=== PATIENT | male | born 1945 | race Caucasian/White ===

== ENCOUNTER 2017-04-08 19:51 | Inpatient (IN) | payer OTHER, MEDICAID ==
[~2017-04-08] VITALS: Ht 182.9 cm; Wt 90.3 kg
[2017-04-08 20:31] LABS: CONDITION Y; DEFINITIVE SEE PRINTOUT
[2017-04-08 20:40] LABS: Hematocrit 37.9 % (41.0-53.0); Hemoglobin 12.4 g/dL (13.5-17.5); Mean Corpuscular Hemoglobin 27.4 pg (28.0-32.0); Mean Corpuscular Hgb Conc. 32.6 g/dL (32.0-36.0); Mean Platelet Volume 8.4 fL (7.4-10.4); Platelet Count (auto) 415 10^3/uL (140-450); Red Cell Distribution Width 17.5 % (11.6-16.0); White Blood Cell 18.3 10^3/uL (4.4-10.8)
[2017-04-08 20:42] LABS: Allen Test Yes; Blood 02Sat 91.8 % (96-100); Blood COHb 0.3 % (0.5-1.5); Blood MetHb 0.3 % (0.0-1.5); HCO3 9.6 mmol/L (22-26.0); HHb 8.2 % (0.0-5.0); MODE NASAL CANNULA; O2Hb 91.2 % (94.0-97.0); PO2 81.1 mmHg (80.0-100.0); PO2(T) 81.1 mmHg (80.0-100.0); Sample Type Arterial; pH 7.139 (7.350-7.450)
[2017-04-08 20:45] LABS: Metamyelocytes % 0; Myelocytes % 0; Promyelocytes % 0; Reactive Lymphocytes 0
[2017-04-08 20:49] LABS: Albumin 2.5 g/dL (3.4-5.0); Alkaline Phosphatase 104 U/L (45-117); Anion Gap 20 (5-15); Aspartate Aminotransferase 18 U/L (15-37); Bilirubin, Total 0.3 mg/dL (0.2-1.0); Carbon Dioxide 11 mmol/L (21-32); Chloride 104 mmol/L (98-107); GFR African American 3 mL/min; GFR Non-African American 3 mL/min; Glucose 98 mg/dL (74-106); Magnesium 3.2 mg/dL (1.6-2.6); Sodium 135 mmol/L (136-145); Total Protein 6.9 g/dL (6.4-8.2)
[2017-04-08] MEDS ORDERED: CALCIUM GLUC 4.65 MEQ/10ML IV ONE (21:04)
[2017-04-08 21:06] LABS: Potassium 9.1 mmol/L (3.5-5.1)
[2017-04-08] MEDS ORDERED: ALBUTEROL SULF 2.5 MG/0.5ML(0.5%) NEB SOLN NEB STA (21:06)
[2017-04-08 21:10] LABS: BUN/Creatinine Ratio 11.1; Blood Urea Nitrogen 206 mg/dL (7-18)
[2017-04-08] MEDS ORDERED: SODIUM POLYSTYRENE SULF 15GM/60ML SUSP PR ONE (21:15)
[2017-04-08] MEDS ORDERED: SODIUM BICARBONATE 8.4% INJ 50ML SYRINGE IV ONE (21:15)
[2017-04-08] MEDS ORDERED: DEXTROSE (50%) 50ML SYRG IV ONE (21:15)
[2017-04-08] MEDS ORDERED: InsuLIN REG 1unit/0.01ml Soln (100units/ml) IV ONE (21:15)
[2017-04-08] MEDS ORDERED: CALCIUM GLUC 4.65 MEQ/10ML 4.65 MEQ in SODIUM CHL 0.9% 50 ML IV ONE (21:15)
[2017-04-08] MEDS ORDERED: SODIUM BICARBONATE 8.4 % INJ 50ML VIAL IV ONE (21:30)
[2017-04-08] MEDS ORDERED: PIPERACILLIN-TAZOB 2.25GM 50 ML IV ONE (21:45)
[2017-04-08] MEDS ORDERED: VANCOMYCIN 1GM/250ML D5W 250 ML IV ONE (21:45)
[2017-04-08 21:54] LABS: Platelet Estimate Adequate
[2017-04-08 21:55] LABS: Burr Cells MODERATE; Ovalocytes FEW
[2017-04-08] MEDS ORDERED: MORPHINE SULF INJ 2 MG/ML SYRINGE 1ML IV PRN ×2 (22:00→22:15)
[2017-04-08] MEDS ORDERED: NITROGLYCERIN 0.4 MG SL TAB SL PRN (22:00)
[2017-04-08] MEDS ORDERED: SODIUM CHLORIDE 0.9% 1,000 ML IV ONE (22:00)
[2017-04-08 22:11] LABS: Urine RBC None Seen /hpf (0 - 3)
[2017-04-08] MEDS ORDERED: ALBUMIN 25% 100 ML IV ONE (22:15)
[2017-04-08] MEDS ORDERED: ONDANSETRON HCL 4 MG/2 ML VIAL IV PRN (22:15)
[2017-04-08 22:17] LABS: B-Type Natriuretic Peptide 148.18 pg/mL (0-100)
[2017-04-08 22:20] LABS: Temperature: 23.3 C (20.0-25.0)
[2017-04-08 22:36] LABS: Urine Bilirubin Negative (Negative); Urine Color Yellow (Yellow); Urine Glucose Normal (Normal); Urine Ketone Negative (Negative); Urine Nitrite Negative (Negative); Urine Urobilinogen Normal (Negative); Urine WBC Clumps PRESENT /hpf (None Seen)
[2017-04-08 22:40] LABS: Urine Blood 2+ /uL (Negative)
[2017-04-08] MEDS ORDERED: BUMETANIDE (0.25 MG/ML) INJ 10ML IV ONE (23:45)
[2017-04-08] MEDS ORDERED: BUMETANIDE (0.25MG/ML) 4 ML VIAL ONE (23:51)
[2017-04-08] MEDS ORDERED: BUMETANIDE INJECTION 10 ML ONE (23:53)
[2017-04-09] VITALS (67 sets, daily range): BP systolic 98–156; BP diastolic 36–117
[2017-04-09] MEDS ORDERED: CALCIUM GLUC 4.65 MEQ/10ML IV ONE (01:37)
[2017-04-09] MEDS ORDERED: SODIUM BICARBONATE 8.4% INJ 50ML SYRINGE ONE ×2 (01:38→03:20)
[2017-04-09] MEDS ORDERED: DEXTROSE 50% SYRINGE 50 ML IV ONE (01:38)
[2017-04-09] MEDS ORDERED: SODIUM POLYSTYRENE SULF 15GM/60ML SUSP ONE (01:38)
[2017-04-09] MEDS ORDERED: InsuLIN REG 1unit/0.01ml Soln (100units/ml) ONE (01:39)
[2017-04-09] MEDS ORDERED: CALCIUM GLUC 4.65 MEQ/10ML 4.65 MEQ in SODIUM CHL 0.9% 50 ML IV ONE (02:00)
[2017-04-09] MEDS ORDERED: DEXTROSE (25%) 10 ML SYRG IV ONE (02:00)
[2017-04-09] MEDS ORDERED: SODIUM POLYSTYRENE SULF 15GM/60ML SUSP PO ONE ×2 (02:00→06:30)
[2017-04-09] MEDS ORDERED: SODIUM BICARBONATE 8.4 % INJ 50ML VIAL IV ONE ×3 (02:00→06:30)
[2017-04-09] MEDS ORDERED: InsuLIN REG 1unit/0.01ml Soln (100units/ml) IV ONE (02:00)
[2017-04-09 02:31] LABS: Allen Test Yes; Base Excess -12.4 mmol/L (-2.0-2.0); Blood 02Sat 96.9 % (96-100); Blood COHb 0.3 % (0.5-1.5); Blood MetHb 0.2 % (0.0-1.5); HCO3 16.4 mmol/L (22-26.0); HHb 3.1 % (0.0-5.0); MODE MASK - SIMPLE; O2Hb 96.4 % (94.0-97.0); PCO2 50.1 mmHg (35.0-45.0); PCO2(T) 50.1 mmHg (35.0-45.0); PO2 133.1 mmHg (80.0-100.0); PO2(T) 133.1 mmHg (80.0-100.0); Sample Type Arterial; pH 7.133 (7.350-7.450)
[2017-04-09 04:05] LABS: Basophils # (auto) 0 uL; Basophils % (auto) 0.1 % (0.0-2.0); CONDITION Y; Eosinophils # (auto) 0.1 uL; Eosinophils % (auto) 0.3 % (0.0-7.0); Hematocrit 31.4 % (41.0-53.0); Hemoglobin 10.1 g/dL (13.5-17.5); Lymphocytes % (auto) 6.7 % (10.0-50.0); Mean Corpuscular Hemoglobin 27.1 pg (28.0-32.0); Mean Corpuscular Hgb Conc. 32.2 g/dL (32.0-36.0); Mean Corpuscular Volume 84.1 fL (80.0-100.0); Mean Platelet Volume 8.1 fL (7.4-10.4); Monocytes % (auto) 6.6 % (0.0-12.0); Neutrophils # (auto) 13.1 uL; Neutrophils % (auto) 86.3 % (37.0-80.0); Platelet Count (auto) 342 10^3/uL (140-450); Red Cell Distribution Width 17.1 % (11.6-16.0); White Blood Cell 15.2 10^3/uL (4.4-10.8)
[2017-04-09 04:32] LABS: Albumin 2.4 g/dL (3.4-5.0); Bilirubin, Total 0.3 mg/dL (0.2-1.0); Calcium 8.5 mg/dL (8.5-10.1); Total Protein 5.8 g/dL (6.4-8.2)
[2017-04-09 05:26] LABS: BUN/Creatinine Ratio 10.6
[2017-04-09 05:28] LABS: Potassium 6.3 mmol/L (3.5-5.1)
[2017-04-09 08:14] LABS: Allen Test Yes; Base Excess -7.7 mmol/L (-2.0-2.0); Blood 02Sat 95.5 % (96-100); Blood COHb 0.1 % (0.5-1.5); Blood MetHb 0.1 % (0.0-1.5); HCO3 19.7 mmol/L (22-26.0); HHb 4.5 % (0.0-5.0); MODE MASK - SIMPLE; O2Hb 95.3 % (94.0-97.0); PO2 101.4 mmHg (80.0-100.0); PO2(T) 101.4 mmHg (80.0-100.0); Sample Type Arterial; pH 7.231 (7.350-7.450)
[2017-04-09] MEDS: PIPERACILLIN-TAZOB 2.25GM 50 ML IV SCH ×2 (10:00→21:58)
[2017-04-09 10:37] LABS: INR 1.22 (0.9-1.15)
[2017-04-09 10:38] LABS: Prothrombin Time 13.3 sec (9.37-12.3)
[2017-04-09] MEDS ORDERED: GABA-339 PO (12:40)
[2017-04-09] MEDS ORDERED: CHOL20007 PO (12:42)
[2017-04-09] MEDS ORDERED: MELO-86 PO (12:42)
[2017-04-09] MEDS ORDERED: ALL300T PO (12:42)
[2017-04-09] MEDS ORDERED: AMLO5TAB2 PO (12:46)
[2017-04-09] MEDS ORDERED: ASPI81CH43 PO (12:46)
[2017-04-09] MEDS ORDERED: ATOR40TA52 PO (12:46)
[2017-04-09] MEDS ORDERED: ALB5IS NEB (12:46)
[2017-04-09] MEDS ORDERED: LOSA25TA9 PO (12:46)
[2017-04-09] MEDS ORDERED: CILO100T PO (12:46)
[2017-04-09] MEDS ORDERED: POM IN (12:47)
[2017-04-09] MEDS ORDERED: BUDE0.253 NEB (12:48)
[2017-04-09 13:19] LABS: Allen Test Yes; Base Excess -5.5 mmol/L (-2.0-2.0); Blood 02Sat 94.4 % (96-100); Blood COHb 0.3 % (0.5-1.5); Blood MetHb 0.1 % (0.0-1.5); HCO3 21.2 mmol/L (22-26.0); HHb 5.6 % (0.0-5.0); MODE MASK - BIPAP; PO2 90.8 mmHg (80.0-100.0); PO2(T) 90.8 mmHg (80.0-100.0); Sample Type Arterial; Spont Vt 787; pH 7.273 (7.350-7.450)
[2017-04-09] MEDS: LIDOCAINE 1% HCL (LOCAL ANESTH.) INJ 20ML MDV ONE ×2 (14:25→14:36)
[2017-04-09] MEDS: HEPARIN SODIUM (PORCINE) 5000 UNITS/ML 1ML VIAL ONE ×2 (14:25→14:35)
[2017-04-09] MEDS: ceFAZolin 1GM VL ONE ×2 (14:25→14:34)
[2017-04-09] MEDS: HEPARIN 1,000 UNITS/ml 1ML VIAL ONE ×2 (14:25→14:35)
[2017-04-09] MEDS ORDERED: fentaNYL CITRATE 100 MCG/2 ML VL ONE (15:46)
[2017-04-09] MEDS ORDERED: ceFAZolin 1GM/50ML D5W 50 ML IV ONE (15:46)
[2017-04-09] MEDS ORDERED: MIDAZOLAM HCL 1MG/1ML-2 ML VIAL ONE (15:46)
[2017-04-09] MEDS ORDERED: SODIUM CHLORIDE LOCK 20 ML ONE (15:47)
[2017-04-09 19:30] LABS: BUN/Creatinine Ratio 3.7; Calcium 7.6 mg/dL (8.5-10.1)
[2017-04-09 20:10] LABS: Potassium 2.5 mmol/L (3.5-5.1)
[2017-04-09] MEDS: MORPHINE SULFATE 4 MG/ML SYRG IV PRN (21:11)
[2017-04-09 21:55] LABS: Albumin 2.2 g/dL (3.4-5.0); BUN/Creatinine Ratio 10.3; Calcium 7.6 mg/dL (8.5-10.1)
[2017-04-09 22:03] LABS: Bilirubin, Total 0.3 mg/dL (0.2-1.0); Total Protein 5.8 g/dL (6.4-8.2)
[2017-04-09 22:12] LABS: Potassium 5.1 mmol/L (3.5-5.1)
[2017-04-09 22:46] LABS: Allen Test Modified; Base Excess 1.3 mmol/L (-2.0-2.0); Blood 02Sat 93.2 % (96-100); Blood COHb 0.2 % (0.5-1.5); Blood MetHb 0.1 % (0.0-1.5); HCO3 27.1 mmol/L (22-26.0); HHb 6.8 % (0.0-5.0); MODE MASK - BIPAP; O2Hb 92.9 % (94.0-97.0); PCO2 47.7 mmHg (35.0-45.0); PCO2(T) 47.7 mmHg (35.0-45.0); PIP 14; PO2 77.9 mmHg (80.0-100.0); PO2(T) 77.9 mmHg (80.0-100.0); Sample Type Arterial; Spont Vt 770; pH 7.372 (7.350-7.450)
[2017-04-09] MEDS ORDERED: LORazepam 2MG/ML-1ML VIAL ONE (22:53)
[2017-04-09] MEDS: LORazepam 2MG/ML-1ML VIAL IV PRN (23:00)
[2017-04-09] MEDS ORDERED: LORazepam 2MG/ML-1ML VIAL IV PRN (23:15)
[2017-04-10] VITALS (41 sets, daily range): BP systolic 96–144; BP diastolic 42–84
[2017-04-10 03:58] LABS: Basophils # (auto) 0 uL; CONDITION Y; DEFINITIVE SEE PRINTOUT; Eosinophils # (auto) 0.2 uL; Eosinophils % (auto) 0.9 % (0.0-7.0); Hematocrit 32.2 % (41.0-53.0); Hemoglobin 10.4 g/dL (13.5-17.5); Lymphocytes # (auto) 0.6 uL; Lymphocytes % (auto) 3.1 % (10.0-50.0); Mean Corpuscular Hemoglobin 26.9 pg (28.0-32.0); Mean Corpuscular Hgb Conc. 32.2 g/dL (32.0-36.0); Mean Corpuscular Volume 83.7 fL (80.0-100.0); Mean Platelet Volume 8.1 fL (7.4-10.4); Monocytes # (auto) 0.8 uL; Monocytes % (auto) 4.7 % (0.0-12.0); Neutrophils # (auto) 16.4 uL; Neutrophils % (auto) 91.3 % (37.0-80.0); Platelet Count (auto) 305 10^3/uL (140-450); Red Cell Distribution Width 18.1 % (11.6-16.0)
[2017-04-10 04:50] LABS: BUN/Creatinine Ratio 9.7; Calcium 7.8 mg/dL (8.5-10.1); Potassium 5.2 mmol/L (3.5-5.1)
[2017-04-10 05:05] LABS: Phosphorus 11.5 mg/dL (2.5-4.90)
[2017-04-10] MEDS: ALBUTEROL SULF 2.5 MG/0.5ML(0.5%) NEB SOLN NEB PRN ×2 (07:01→14:22)
[2017-04-10] MEDS: LORazepam 2MG/ML-1ML VIAL IV PRN ×3 (08:39→19:51)
[2017-04-10] MEDS: PIPERACILLIN-TAZOB 2.25GM 50 ML IV SCH ×2 (09:54→21:57)
[2017-04-10] MEDS: LINEZOLID 600MG/300ML 300 ML IV SCH ×2 (09:55→21:57)
[2017-04-10 12:55] LABS: Allen Test Yes; Base Excess -1.2 mmol/L (-2.0-2.0); Blood COHb 0.2 % (0.5-1.5); Blood MetHb 0.1 % (0.0-1.5); HCO3 25.8 mmol/L (22-26.0); MODE MASK - BIPAP; O2Hb 87.7 % (94.0-97.0); PCO2 54.3 mmHg (35.0-45.0); PCO2(T) 54.3 mmHg (35.0-45.0); PIP 14; PO2 65.3 mmHg (80.0-100.0); PO2(T) 65.3 mmHg (80.0-100.0); Sample Type Arterial; pH 7.295 (7.350-7.450)
[2017-04-10 18:24] LABS: Allen Test Yes; Base Excess -0.2 mmol/L (-2.0-2.0); Blood 02Sat 89.1 % (96-100); Blood COHb 0.1 % (0.5-1.5); Blood MetHb 0.1 % (0.0-1.5); HCO3 26.2 mmol/L (22-26.0); HHb 10.9 % (0.0-5.0); MODE MASK - BIPAP; O2Hb 88.9 % (94.0-97.0); PO2 65.8 mmHg (80.0-100.0); PO2(T) 65.8 mmHg (80.0-100.0); Sample Type Arterial; pH 7.329 (7.350-7.450)
[2017-04-11] VITALS (34 sets, daily range): BP systolic 105–150; BP diastolic 47–87
[2017-04-11 03:43] LABS: CONDITION Y; Hematocrit 33.4 % (41.0-53.0); Hemoglobin 10.8 g/dL (13.5-17.5); Mean Corpuscular Hemoglobin 27.2 pg (28.0-32.0); Mean Corpuscular Hgb Conc. 32.5 g/dL (32.0-36.0); Mean Corpuscular Volume 83.9 fL (80.0-100.0); Mean Platelet Volume 8.3 fL (7.4-10.4); Platelet Count (auto) 325 10^3/uL (140-450); Red Cell Distribution Width 17.9 % (11.6-16.0); SUSPECT SEE PRINTOUT; White Blood Cell 27.4 10^3/uL (4.4-10.8)
[2017-04-11 04:03] LABS: Calcium 7.8 mg/dL (8.5-10.1); Potassium 5.1 mmol/L (3.5-5.1)
[2017-04-11 04:10] LABS: Metamyelocytes % 0; Myelocytes % 0; Promyelocytes % 0; Reactive Lymphocytes 0
[2017-04-11 04:14] LABS: BUN/Creatinine Ratio 9.9
[2017-04-11 04:31] LABS: Hypersegmented Neutrophils Present
[2017-04-11 04:32] LABS: Anisocytosis Slight; Platelet Estimate Adequate
[2017-04-11] MEDS: LORazepam 2MG/ML-1ML VIAL IV PRN (06:36)
[2017-04-11] MEDS: MORPHINE SULFATE 4 MG/ML SYRG IV PRN ×2 (09:20→22:50)
[2017-04-11] MEDS ORDERED: LIDOCAINE 2%HCL (LOCAL ANESTH.) INJ 20ML MDV ONE (10:25)
[2017-04-11] MEDS ORDERED: IOHEXOL 300 MG/ML 100ML BOTTLE IJ ONE (10:26)
[2017-04-11] MEDS ORDERED: MORPHINE SULF INJ 2 MG/ML SYRINGE 1ML ONE (10:32)
[2017-04-11] MEDS: LINEZOLID 600MG/300ML 300 ML IV SCH ×2 (12:00→22:00)
[2017-04-11] MEDS: methylPREDNISolone SOD SUCC 125 MG/2 ML VL IV SCH ×2 (12:29→23:01)
[2017-04-11] MEDS: PIPERACILLIN-TAZOB 2.25GM 50 ML IV SCH ×2 (12:29→23:00)
[2017-04-11] MEDS ORDERED: MORPHINE SULF INJ 2 MG/ML SYRINGE 1ML IV ONE ×2 (12:31→12:45)
[2017-04-11 12:48] LABS: Base Excess -3.5 mmol/L (-2.0-2.0); Blood 02Sat 91.9 % (96-100); Blood MetHb 0.3 % (0.0-1.5); HCO3 27.3 mmol/L (22-26.0); HHb 8.1 % (0.0-5.0); MODE MASK - BIPAP; O2Hb 91.6 % (94.0-97.0); PCO2 84.8 mmHg (35.0-45.0); PCO2(T) 84.8 mmHg (35.0-45.0); Pressure Support 8; Sample Type Arterial; Spont Vt 655; pH 7.125 (7.350-7.450)
[2017-04-11] MEDS ORDERED: SODIUM BICARBONATE 8.4 % INJ 50ML VIAL IV ONE (13:00)
[2017-04-11] MEDS ORDERED: SODIUM BICARBONATE 8.4% INJ 50ML SYRINGE ONE (13:28)
[2017-04-11 15:30] LABS: Base Excess -0.9 mmol/L (-2.0-2.0); Blood 02Sat 96.4 % (96-100); Blood COHb 0.3 % (0.5-1.5); Blood MetHb 0.4 % (0.0-1.5); HCO3 27.8 mmol/L (22-26.0); HHb 3.6 % (0.0-5.0); MODE MASK - BIPAP; O2Hb 95.7 % (94.0-97.0); PCO2 68.7 mmHg (35.0-45.0); PCO2(T) 68.7 mmHg (35.0-45.0); PO2 108.3 mmHg (80.0-100.0); PO2(T) 108.3 mmHg (80.0-100.0); Sample Type Arterial; pH 7.225 (7.350-7.450)
[2017-04-11] MEDS: IPRATROPIUM BROM 0.5 MG/2.5ML INH SOL NEB PRN (18:44)
[2017-04-11] MEDS: ALBUTEROL SULF 2.5 MG/0.5ML(0.5%) NEB SOLN NEB PRN (18:44)
[2017-04-11 22:12] LABS: Base Excess -2.8 mmol/L (-2.0-2.0); Blood 02Sat 96.1 % (96-100); Blood COHb 0.3 % (0.5-1.5); Blood MetHb 0.3 % (0.0-1.5); HCO3 24.9 mmol/L (22-26.0); HHb 3.9 % (0.0-5.0); MODE MASK - BIPAP; O2Hb 95.5 % (94.0-97.0); PCO2 57.1 mmHg (35.0-45.0); PCO2(T) 57.1 mmHg (35.0-45.0); PIP 18; Sample Type Arterial; Spont Vt 1331; pH 7.257 (7.350-7.450)
[2017-04-12] VITALS (36 sets, daily range): BP systolic 98–156; BP diastolic 37–96
[2017-04-12 03:50] LABS: CONDITION Y; Hematocrit 31.1 % (41.0-53.0); Hemoglobin 10.1 g/dL (13.5-17.5); Mean Corpuscular Hemoglobin 27.6 pg (28.0-32.0); Mean Corpuscular Hgb Conc. 32.5 g/dL (32.0-36.0); Mean Corpuscular Volume 84.8 fL (80.0-100.0); Mean Platelet Volume 8.8 fL (7.4-10.4); Platelet Count (auto) 262 10^3/uL (140-450); Red Cell Distribution Width 18.2 % (11.6-16.0); SUSPECT SEE PRINTOUT; White Blood Cell 22.9 10^3/uL (4.4-10.8)
[2017-04-12 04:10] LABS: Metamyelocytes % 0; Myelocytes % 0; Promyelocytes % 0; Reactive Lymphocytes 0
[2017-04-12 04:19] LABS: Calcium 7.6 mg/dL (8.5-10.1); Magnesium 2.9 mg/dL (1.6-2.6); Potassium 5.1 mmol/L (3.5-5.1)
[2017-04-12 05:08] LABS: Hypersegmented Neutrophils Present; Platelet Estimate Adequate
[2017-04-12 05:09] LABS: Anisocytosis Slight
[2017-04-12 05:14] LABS: BUN/Creatinine Ratio 9.5
[2017-04-12] MEDS: IPRATROPIUM BROM 0.5 MG/2.5ML INH SOL NEB PRN (06:23)
[2017-04-12] MEDS: ALBUTEROL SULF 2.5 MG/0.5ML(0.5%) NEB SOLN NEB PRN (06:23)
[2017-04-12] MEDS: MORPHINE SULFATE 4 MG/ML SYRG IV PRN ×4 (06:41→22:56)
[2017-04-12 07:35] LABS: Allen Test Yes; Base Excess -0.1 mmol/L (-2.0-2.0); Blood 02Sat 94.9 % (96-100); Blood COHb 0.3 % (0.5-1.5); Blood MetHb 0.3 % (0.0-1.5); HCO3 27.8 mmol/L (22-26.0); HHb 5.1 % (0.0-5.0); MODE MASK - BIPAP; O2Hb 94.3 % (94.0-97.0); PCO2 62.7 mmHg (35.0-45.0); PCO2(T) 62.7 mmHg (35.0-45.0); PIP 20; Pressure Support 12; Sample Type Arterial; Spont Vt 629; pH 7.264 (7.350-7.450)
[2017-04-12] MEDS ORDERED: CATHFLO ACTIVASE (ALTEPLASE) 2 MG VIAL IV ONE (10:00)
[2017-04-12] MEDS: PIPERACILLIN-TAZOB 2.25GM 50 ML IV SCH ×2 (10:08→22:00)
[2017-04-12] MEDS: methylPREDNISolone SOD SUCC 125 MG/2 ML VL IV SCH ×2 (10:08→22:57)
[2017-04-12] MEDS ORDERED: LIDOCAINE 2%HCL (LOCAL ANESTH.) INJ 20ML MDV ONE (10:44)
[2017-04-12] MEDS: LINEZOLID 600MG/300ML 300 ML IV SCH ×2 (13:00→22:57)
[2017-04-12] MEDS ORDERED: IOHEXOL 300 MG/ML 100ML BOTTLE IJ ONE (14:38)
[2017-04-12 17:09] LABS: Allen Test Yes; Base Excess 3.1 mmol/L (-2.0-2.0); Blood 02Sat 95.9 % (96-100); Blood COHb 0.5 % (0.5-1.5); Blood MetHb 0.2 % (0.0-1.5); HCO3 30.5 mmol/L (22-26.0); HHb 4.1 % (0.0-5.0); MODE VENT - A/C; O2Hb 95.2 % (94.0-97.0); PCO2 61.5 mmHg (35.0-45.0); PCO2(T) 61.5 mmHg (35.0-45.0); PO2 96.9 mmHg (80.0-100.0); PO2(T) 96.9 mmHg (80.0-100.0); Pressure Support 14; Sample Type Arterial; Spont Vt 1127; pH 7.313 (7.350-7.450)
[2017-04-12] MEDS: LORazepam 2MG/ML-1ML VIAL IV PRN ×2 (17:18→20:37)
[2017-04-12 17:34] LABS: CONDITION Y; Hematocrit 32.4 % (41.0-53.0); Hemoglobin 10.6 g/dL (13.5-17.5); Mean Corpuscular Hemoglobin 27.5 pg (28.0-32.0); Mean Corpuscular Hgb Conc. 32.8 g/dL (32.0-36.0); Mean Corpuscular Volume 83.8 fL (80.0-100.0); Mean Platelet Volume 8.8 fL (7.4-10.4); Platelet Count (auto) 231 10^3/uL (140-450); Red Cell Distribution Width 18.1 % (11.6-16.0); SUSPECT SEE PRINTOUT; White Blood Cell 27.9 10^3/uL (4.4-10.8)
[2017-04-12 17:44] LABS: Metamyelocytes % 0; Myelocytes % 0; Promyelocytes % 0; Reactive Lymphocytes 0
[2017-04-12 17:53] LABS: Platelet Estimate Adequate
[2017-04-12] MEDS ORDERED: MORPHINE SULFATE 4 MG/ML SYRG IV PRN (20:45)
[2017-04-13] VITALS (45 sets, daily range): BP systolic 108–177; BP diastolic 39–114
[2017-04-13] MEDS: MORPHINE SULFATE 4 MG/ML SYRG IV PRN ×5 (01:56→17:40)
[2017-04-13] MEDS: LORazepam 2MG/ML-1ML VIAL IV PRN ×4 (03:03→15:33)
[2017-04-13 04:31] LABS: Potassium 3.7 mmol/L (3.5-5.1)
[2017-04-13 04:33] LABS: BUN/Creatinine Ratio 13.2
[2017-04-13 04:35] LABS: Bilirubin, Total 0.3 mg/dL (0.2-1.0)
[2017-04-13 07:29] LABS: Allen Test No; Base Excess 11.1 mmol/L (-2.0-2.0); Blood COHb 0.1 % (0.5-1.5); Blood MetHb 0.3 % (0.0-1.5); HCO3 36.6 mmol/L (22-26.0); MODE MASK - BIPAP; O2Hb 92.6 % (94.0-97.0); PCO2 52.7 mmHg (35.0-45.0); PCO2(T) 52.7 mmHg (35.0-45.0); PIP 22; PO2 74.2 mmHg (80.0-100.0); PO2(T) 74.2 mmHg (80.0-100.0); Pressure Support 14; Sample Type Arterial; pH 7.459 (7.350-7.450)
[2017-04-13] MEDS ORDERED: HALOPERIDOL LACTATE 5 MG/ML INJ VIAL IV PRN ×2 (09:15→17:15)
[2017-04-13] MEDS: methylPREDNISolone SOD SUCC 125 MG/2 ML VL IV SCH ×2 (10:30→23:22)
[2017-04-13] MEDS: PIPERACILLIN-TAZOB 2.25GM 50 ML IV SCH ×2 (10:43→23:23)
[2017-04-13] MEDS: LINEZOLID 600MG/300ML 300 ML IV SCH ×2 (10:49→23:23)
[2017-04-13] MEDS: Novasource Renal 8 Ounces PO SCH ×3 (12:00→22:00)
[2017-04-13] MEDS: FREE WATER GT SCH ×2 (12:00→18:00)
[2017-04-13] MEDS ORDERED: D5W 5% 1,000 ML IV SCH (12:15)
[2017-04-13] MEDS ORDERED: PPN PER PHARMACY 0 ML IV SCH (17:15)
[2017-04-13] MEDS ORDERED: LORazepam 2MG/ML-1ML VIAL IV PRN (17:15)
[2017-04-13 18:30] LABS: Allen Test Modified; Base Excess 9.2 mmol/L (-2.0-2.0); Blood 02Sat 94.6 % (96-100); Blood COHb 0.3 % (0.5-1.5); Blood MetHb 0.3 % (0.0-1.5); HCO3 34.3 mmol/L (22-26.0); HHb 5.4 % (0.0-5.0); MODE MASK - BIPAP; PCO2 49.3 mmHg (35.0-45.0); PCO2(T) 49.3 mmHg (35.0-45.0); PO2 82.2 mmHg (80.0-100.0); PO2(T) 82.2 mmHg (80.0-100.0); Sample Type Arterial
[2017-04-13] MEDS ORDERED: ROCURONIUM 10MG/ML 10ML VIAL IV ONE (19:17)
[2017-04-13] MEDS ORDERED: ETOMIDATE (2MG/ML) 20ML VIAL IV ONE (19:17)
[2017-04-13] MEDS ORDERED: SUCCINYLCHOLINE CHLORIDE 20 MG/ML 10ML VIAL IV ONE (19:17)
[2017-04-13] MEDS ORDERED: PROPOFOL 100 ML IV ONE (19:53)
[2017-04-13] MEDS ORDERED: AMINO ACID INFUSION IN D10W 1,000 ML IV ONE (20:00)
[2017-04-13] MEDS ORDERED: PROPOFOL 10 MG/ML 20 ML IV ONE (20:45)
[2017-04-13 21:39] LABS: Allen Test Modified; Base Excess 8.9 mmol/L (-2.0-2.0); Blood 02Sat 97.4 % (96-100); Blood COHb 0.1 % (0.5-1.5); Blood MetHb 0.1 % (0.0-1.5); HCO3 34.3 mmol/L (22-26.0); HHb 2.6 % (0.0-5.0); MODE VENT - A/C; O2Hb 97.2 % (94.0-97.0); Sample Type Arterial; pH 7.445 (7.350-7.450)
[2017-04-14] VITALS (103 sets, daily range): BP systolic 86–163; BP diastolic 39–81
[2017-04-14] MEDS ORDERED: DEXTROSE (50%) 50ML SYRG IV SCH
[2017-04-14] MEDS ORDERED: PROPOFOL 10 MG/ML 20 ML IV SCH
[2017-04-14] MEDS ORDERED: SUCCINYLCHOLINE CHLORIDE 20 MG/ML 10ML VIAL IV ONE
[2017-04-14] MEDS ORDERED: ETOMIDATE (2MG/ML) 20ML VIAL IV ONE
[2017-04-14] MEDS: InsuLIN REG 1unit/0.01ml Soln (100units/ml) SC SCH ×5 (00:40→23:51)
[2017-04-14] MEDS ORDERED: PROPOFOL 100 ML IV ONE ×2 (01:23→05:18)
[2017-04-14 04:21] LABS: CONDITION Y; Hematocrit 30.5 % (41.0-53.0); Hemoglobin 9.8 g/dL (13.5-17.5); Mean Corpuscular Hemoglobin 27.5 pg (28.0-32.0); Mean Corpuscular Hgb Conc. 32.2 g/dL (32.0-36.0); Mean Corpuscular Volume 85.5 fL (80.0-100.0); Mean Platelet Volume 8.9 fL (7.4-10.4); Platelet Count (auto) 177 10^3/uL (140-450); Red Cell Distribution Width 17.6 % (11.6-16.0); SUSPECT SEE PRINTOUT; White Blood Cell 19.1 10^3/uL (4.4-10.8)
[2017-04-14 04:26] LABS: Metamyelocytes % 0; Myelocytes % 0; Promyelocytes % 0; Reactive Lymphocytes 0
[2017-04-14 04:57] LABS: BUN/Creatinine Ratio 25.2; Bilirubin, Total 0.4 mg/dL (0.2-1.0); Phosphorus 2.3 mg/dL (2.5-4.90); Potassium 3.5 mmol/L (3.5-5.1); Total Protein 5.5 g/dL (6.4-8.2)
[2017-04-14 05:27] LABS: Anisocytosis Slight; Ovalocytes FEW; Platelet Estimate Adequate; Stomatocytes Few
[2017-04-14] MEDS: Novasource Renal 8 Ounces PO SCH ×4 (05:29→21:59)
[2017-04-14] MEDS: FREE WATER GT SCH ×5 (05:29→23:50)
[2017-04-14] MEDS: PROPOFOL 100 ML IV SCH ×2 (05:30→23:50)
[2017-04-14] MEDS: ACCU-CHEK COMFORT CURVE STRIP VI SCH ×5 (06:09→23:51)
[2017-04-14] MEDS: methylPREDNISolone SOD SUCC 125 MG/2 ML VL IV SCH ×2 (11:00→21:59)
[2017-04-14] MEDS: LINEZOLID 600MG/300ML 300 ML IV SCH ×2 (11:00→21:59)
[2017-04-14] MEDS: PIPERACILLIN-TAZOB 2.25GM 50 ML IV SCH ×2 (12:30→21:59)
[2017-04-14] MEDS: fentaNYL Drip 2500mCg/250mlNS 250 ML IV SCH (16:30)
[2017-04-14] MEDS ORDERED: PPN PER PHARMACY IV NR ×10 (20:00)
[2017-04-14 22:22] LABS: Allen Test Yes; Base Excess 8.4 mmol/L (-2.0-2.0); Blood 02Sat 95.9 % (96-100); Blood COHb 0.3 % (0.5-1.5); Blood MetHb 0.1 % (0.0-1.5); HHb 4.1 % (0.0-5.0); MODE VENT - A/C; O2Hb 95.5 % (94.0-97.0); PCO2 53.2 mmHg (35.0-45.0); PCO2(T) 53.2 mmHg (35.0-45.0); PO2 101.7 mmHg (80.0-100.0); PO2(T) 101.7 mmHg (80.0-100.0); Sample Type Arterial; pH 7.424 (7.350-7.450)
[2017-04-15] VITALS (78 sets, daily range): BP systolic 99–133; BP diastolic 33–61
[2017-04-15 04:13] LABS: CONDITION Y; Hematocrit 30.2 % (41.0-53.0); Hemoglobin 9.5 g/dL (13.5-17.5); Mean Corpuscular Hemoglobin 27.1 pg (28.0-32.0); Mean Corpuscular Hgb Conc. 31.3 g/dL (32.0-36.0); Mean Corpuscular Volume 86.6 fL (80.0-100.0); Mean Platelet Volume 9.8 fL (7.4-10.4); Platelet Count (auto) 164 10^3/uL (140-450); Red Cell Distribution Width 18.2 % (11.6-16.0); SUSPECT SEE PRINTOUT; White Blood Cell 20.1 10^3/uL (4.4-10.8)
[2017-04-15 04:22] LABS: Metamyelocytes % 0; Myelocytes % 0; Promyelocytes % 0; Reactive Lymphocytes 0
[2017-04-15 04:30] LABS: BUN/Creatinine Ratio 35.9; Bilirubin, Total 0.3 mg/dL (0.2-1.0); Calcium 8.1 mg/dL (8.5-10.1); Magnesium 2.2 mg/dL (1.6-2.6); Phosphorus 2.7 mg/dL (2.5-4.90); Potassium 3.8 mmol/L (3.5-5.1); Total Protein 5.4 g/dL (6.4-8.2)
[2017-04-15 04:57] LABS: Hypersegmented Neutrophils Present; Platelet Estimate Adequate
[2017-04-15 04:58] LABS: Anisocytosis Slight; Ovalocytes FEW
[2017-04-15] MEDS: FREE WATER GT SCH ×3 (06:00→18:00)
[2017-04-15] MEDS: InsuLIN REG 1unit/0.01ml Soln (100units/ml) SC SCH ×3 (06:00→19:12)
[2017-04-15] MEDS: Novasource Renal 8 Ounces PO SCH ×4 (06:00→21:45)
[2017-04-15] MEDS: ACCU-CHEK COMFORT CURVE STRIP VI SCH ×3 (06:00→19:10)
[2017-04-15 06:43] LABS: Base Excess 9.1 mmol/L (-2.0-2.0); Blood 02Sat 96.7 % (96-100); Blood COHb 0.1 % (0.5-1.5); Blood MetHb 0.2 % (0.0-1.5); HCO3 35.5 mmol/L (22-26.0); HHb 3.3 % (0.0-5.0); MODE VENT - A/C; O2Hb 96.4 % (94.0-97.0); PCO2 58.7 mmHg (35.0-45.0); PCO2(T) 58.7 mmHg (35.0-45.0); PO2 106.3 mmHg (80.0-100.0); PO2(T) 106.3 mmHg (80.0-100.0); Sample Type Arterial; pH 7.399 (7.350-7.450)
[2017-04-15] MEDS: methylPREDNISolone SOD SUCC 125 MG/2 ML VL IV SCH ×2 (10:10→21:44)
[2017-04-15] MEDS: PIPERACILLIN-TAZOB 3.375GM 100 ML IV SCH ×3 (10:14→20:42)
[2017-04-15] MEDS: LINEZOLID 600MG/300ML 300 ML IV SCH ×2 (14:19→21:44)
[2017-04-15] MEDS: fentaNYL Drip 2500mCg/250mlNS 250 ML IV SCH (20:00)
[2017-04-15] MEDS ORDERED: PPN PER PHARMACY IV NR ×10 (20:00)
[2017-04-15] MEDS: PROPOFOL 100 ML IV SCH (22:00)
[2017-04-16] VITALS (105 sets, daily range): BP systolic 93–129; BP diastolic 38–64
[2017-04-16] MEDS: ACCU-CHEK COMFORT CURVE STRIP VI SCH ×5 (00:02→23:54)
[2017-04-16] MEDS: FREE WATER GT SCH ×5 (00:02→23:54)
[2017-04-16] MEDS: InsuLIN REG 1unit/0.01ml Soln (100units/ml) SC SCH ×5 (00:02→23:54)
[2017-04-16] MEDS: PIPERACILLIN-TAZOB 3.375GM 100 ML IV SCH ×4 (03:00→20:54)
[2017-04-16 03:50] LABS: CONDITION Y; Hematocrit 28.7 % (41.0-53.0); Hemoglobin 8.9 g/dL (13.5-17.5); Mean Corpuscular Hemoglobin 27.1 pg (28.0-32.0); Mean Corpuscular Hgb Conc. 31.1 g/dL (32.0-36.0); Mean Corpuscular Volume 87.2 fL (80.0-100.0); Mean Platelet Volume 9.4 fL (7.4-10.4); Platelet Count (auto) 144 10^3/uL (140-450); Red Cell Distribution Width 17.9 % (11.6-16.0); SUSPECT SEE PRINTOUT; White Blood Cell 22.9 10^3/uL (4.4-10.8)
[2017-04-16] MEDS: PROPOFOL 100 ML IV SCH ×3 (04:00→22:59)
[2017-04-16 04:02] LABS: Metamyelocytes % 0; Promyelocytes % 0; Reactive Lymphocytes 0
[2017-04-16 04:06] LABS: Bilirubin, Total 0.2 mg/dL (0.2-1.0); Calcium 7.6 mg/dL (8.5-10.1); Magnesium 2.1 mg/dL (1.6-2.6); Phosphorus 2.8 mg/dL (2.5-4.90); Potassium 4.5 mmol/L (3.5-5.1)
[2017-04-16 05:09] LABS: Anisocytosis Slight; Hypersegmented Neutrophils Present; Myelocytes % 1; Platelet Estimate Adequate
[2017-04-16 05:10] LABS: Ovalocytes FEW
[2017-04-16] MEDS: Novasource Renal 8 Ounces PO SCH ×4 (05:30→22:00)
[2017-04-16 06:50] LABS: INR 1.08 (0.9-1.15); Prothrombin Time 11.8 sec (9.37-12.3)
[2017-04-16 07:03] LABS: Allen Test Yes; Base Excess 5.4 mmol/L (-2.0-2.0); Blood 02Sat 96.2 % (96-100); Blood COHb 0.3 % (0.5-1.5); Blood MetHb 0.3 % (0.0-1.5); HCO3 31.5 mmol/L (22-26.0); HHb 3.8 % (0.0-5.0); MODE VENT - A/C; O2Hb 95.6 % (94.0-97.0); PCO2 54.2 mmHg (35.0-45.0); PCO2(T) 54.2 mmHg (35.0-45.0); PO2 98.2 mmHg (80.0-100.0); PO2(T) 98.2 mmHg (80.0-100.0); Sample Type Arterial; pH 7.382 (7.350-7.450)
[2017-04-16] MEDS: fentaNYL Drip 2500mCg/250mlNS 250 ML IV SCH ×2 (07:31→18:31)
[2017-04-16] MEDS: LINEZOLID 600MG/300ML 300 ML IV SCH ×2 (09:41→22:00)
[2017-04-16] MEDS: methylPREDNISolone SOD SUCC 125 MG/2 ML VL IV SCH ×2 (09:41→22:00)
[2017-04-16] MEDS ORDERED: PPN PER PHARMACY IV SCH ×9 (11:30)
[2017-04-16] MEDS: D5W/SOD CHL 0.45%/KCL 20MEQ 1,000 ML IV SCH ×2 (14:06→22:00)
[2017-04-16] MEDS ORDERED: PPN PER PHARMACY IV NR ×9 (20:00)
[2017-04-17] VITALS (96 sets, daily range): BP systolic 91–122; BP diastolic 37–60
[2017-04-17] MEDS: PROPOFOL 100 ML IV SCH ×2 (02:40→07:00)
[2017-04-17] MEDS: PIPERACILLIN-TAZOB 3.375GM 100 ML IV SCH ×3 (02:40→15:16)
[2017-04-17 03:49] LABS: CONDITION Y; Hematocrit 27.8 % (41.0-53.0); Hemoglobin 8.7 g/dL (13.5-17.5); Mean Corpuscular Hemoglobin 27.1 pg (28.0-32.0); Mean Corpuscular Hgb Conc. 31.1 g/dL (32.0-36.0); Mean Platelet Volume 10.4 fL (7.4-10.4); Platelet Count (auto) 143 10^3/uL (140-450); Red Cell Distribution Width 18.1 % (11.6-16.0); SUSPECT SEE PRINTOUT
[2017-04-17 04:13] LABS: Albumin 1.8 g/dL (3.4-5.0); Potassium 5.1 mmol/L (3.5-5.1)
[2017-04-17 04:16] LABS: BUN/Creatinine Ratio 40.2; Calcium 7.5 mg/dL (8.5-10.1); Magnesium 1.9 mg/dL (1.6-2.6)
[2017-04-17 04:19] LABS: Bilirubin, Total 0.3 mg/dL (0.2-1.0); Phosphorus 2.7 mg/dL (2.5-4.90); Total Protein 5.1 g/dL (6.4-8.2)
[2017-04-17 04:58] LABS: Metamyelocytes % 0; Myelocytes % 0; Promyelocytes % 0; Reactive Lymphocytes 0
[2017-04-17 05:33] LABS: Anisocytosis Slight; Hypersegmented Neutrophils Present; Ovalocytes FEW; Platelet Estimate Adequate
[2017-04-17] MEDS: IPRATROPIUM BROM 0.5 MG/2.5ML INH SOL NEB PRN (05:56)
[2017-04-17] MEDS: ALBUTEROL SULF 2.5 MG/0.5ML(0.5%) NEB SOLN NEB PRN (05:56)
[2017-04-17] MEDS: InsuLIN REG 1unit/0.01ml Soln (100units/ml) SC SCH ×3 (05:59→17:18)
[2017-04-17] MEDS: FREE WATER GT SCH ×3 (05:59→18:00)
[2017-04-17] MEDS: ACCU-CHEK COMFORT CURVE STRIP VI SCH ×3 (05:59→17:18)
[2017-04-17] MEDS: Novasource Renal 8 Ounces PO SCH ×3 (05:59→18:00)
[2017-04-17] MEDS: fentaNYL Drip 2500mCg/250mlNS 250 ML IV SCH (07:00)
[2017-04-17 07:27] LABS: Base Excess 8.4 mmol/L (-2.0-2.0); Blood 02Sat 93.4 % (96-100); Blood COHb 0.4 % (0.5-1.5); HHb 6.6 % (0.0-5.0); MODE VENT - SIMV; PCO2 69.6 mmHg (35.0-45.0); PCO2(T) 69.6 mmHg (35.0-45.0); PO2 77.2 mmHg (80.0-100.0); PO2(T) 77.2 mmHg (80.0-100.0); Pressure Support 10; Sample Type Arterial; pH 7.331 (7.350-7.450)
[2017-04-17] MEDS: D5W/SOD CHL 0.45%/KCL 20MEQ 1,000 ML IV SCH (10:00)
[2017-04-17] MEDS: methylPREDNISolone SOD SUCC 125 MG/2 ML VL IV SCH (10:22)
[2017-04-17] MEDS: LINEZOLID 600MG/300ML 300 ML IV SCH (10:22)
[2017-04-17 10:56] LABS: Allen Test Yes; Base Excess 8.7 mmol/L (-2.0-2.0); Blood 02Sat 93.3 % (96-100); Blood COHb 0.3 % (0.5-1.5); Blood MetHb 0.1 % (0.0-1.5); HCO3 35.6 mmol/L (22-26.0); HHb 6.7 % (0.0-5.0); MODE VENT - A/C; O2Hb 92.9 % (94.0-97.0); PCO2 64.1 mmHg (35.0-45.0); PCO2(T) 64.1 mmHg (35.0-45.0); PO2 74.4 mmHg (80.0-100.0); PO2(T) 74.4 mmHg (80.0-100.0); Sample Type Arterial; pH 7.362 (7.350-7.450)
[2017-04-17] MEDS ORDERED: D5W 5% 1,000 ML IV SCH (11:30)
[2017-04-17] MEDS ORDERED: MORPHINE SULFATE 4 MG/ML SYRG IV PRN (14:09)
[2017-04-17] MEDS ORDERED: HYDROmorphone HCL 2 MG/ML VL IV PRN (17:30)
[2017-04-17] MEDS: LORazepam 2MG/ML-1ML VIAL IV PRN (20:00)
[2017-04-18] VITALS: BP 96/46
[2017-04-18 01:00] VITALS: BP 88/39
[2017-04-18 02:00] VITALS: BP 103/44
[2017-04-18 03:00] VITALS: BP 99/48
[2017-04-18] MEDS: LORazepam 2MG/ML-1ML VIAL IV PRN (03:10)
[2017-04-18 04:00] VITALS: BP 75/39
== END 2017-04-18 10:00 | disposition expired | DRG 871 ==
LOC: EDBD 19:51 → ER 20:02 → TELE 20:03 → ICU WEST 23:51
PROVIDERS: ADMIT Internal Medicine; ATTEND Internal Medicine
PROC: 5A1D60Z (ICD-10-PCS; 2017-04-09)
PROC: 5A09457 Assistance with Respiratory Ventilation, 24-96 Consecutive Hours, Continuous Positive Airway Pressure (ICD-10-PCS; 2017-04-09)
PROC: 05H633Z Insertion of Infusion Device into Left Subclavian Vein, Percutaneous Approach (ICD-10-PCS; principal; 2017-04-09 16:08)
PROC: 0T9130Z Drainage of Left Kidney with Drainage Device, Percutaneous Approach (ICD-10-PCS; 2017-04-11)
PROC: 0T9030Z Drainage of Right Kidney with Drainage Device, Percutaneous Approach (ICD-10-PCS; 2017-04-12)
PROC: 5A1945Z Respiratory Ventilation, 24-96 Consecutive Hours (ICD-10-PCS; 2017-04-13)
PROC: 0BH17EZ Insertion of Endotracheal Airway into Trachea, Via Natural or Artificial Opening (ICD-10-PCS; 2017-04-13)
DX: A41.9 Sepsis, unspecified organism (principal); G93.41 Metabolic encephalopathy; J96.01 Acute respiratory failure with hypoxia; J96.02 Acute respiratory failure with hypercapnia; N18.6 End stage renal disease; J18.9 Pneumonia, unspecified organism; N17.9 Acute kidney failure, unspecified; E87.0 Hyperosmolality and hypernatremia; N39.0 Urinary tract infection, site not specified; N13.30 Unspecified hydronephrosis; I13.2 Hypertensive heart and chronic kidney disease with heart failure and with stage 5 chronic kidney disease, or end stage renal disease; J44.0 Chronic obstructive pulmonary disease with (acute) lower respiratory infection; Z66 Do not resuscitate; E87.5 Hyperkalemia; C67.9 Malignant neoplasm of bladder, unspecified; D64.9 Anemia, unspecified; Z99.2 Dependence on renal dialysis; E78.5 Hyperlipidemia, unspecified; F17.210 Nicotine dependence, cigarettes, uncomplicated; I25.10 Atherosclerotic heart disease of native coronary artery without angina pectoris; I50.9 Heart failure, unspecified; I70.0 Atherosclerosis of aorta; I73.9 Peripheral vascular disease, unspecified; N28.1 Cyst of kidney, acquired; M75.92 Shoulder lesion, unspecified, left shoulder; E66.9 Obesity, unspecified; R91.1 Solitary pulmonary nodule; Z79.82 Long term (current) use of aspirin; Z79.899 Other long term (current) drug therapy; Z68.27 Body mass index [BMI] 27.0-27.9, adult; Z95.828 Presence of other vascular implants and grafts; Z86.73 Personal history of transient ischemic attack (TIA), and cerebral infarction without residual deficits; Z95.1 Presence of aortocoronary bypass graft; Z71.3 Dietary counseling and surveillance
CPT/HCPCS: 10022; 36415; 36600; 70450; 71010; 71250; 73020; 74000; 74176; 74425; 76775; 76942; 80048; 80053; 80320; 81001; 82040; 82805; 82962; 83605; 83735; 83880; 84100; 84132; 84478; 84484; 85007; 85025; 85027; 85610; 85730; 86850; 86900; 86901; 87040; 87070; 87081; 87086; 87205; 87340; 90935; 93005; 93306; 94003; 94640; 94660; 96365; 96366; 96368; 96375; A4565; C1729; J0330; J0690; J1815; J2001; J2250; J2543; J2704; J3010